=== PATIENT | female | born 1965 | race Caucasian/White ===

== ENCOUNTER → 2021-05-29 | Outpatient (CLI) | payer OTHER ==
[~2021-05-29] MED LIST: ASPIRIN EC81 MG PO; CEFUROXIME500 MG PO; DULERA 100 MCG8.8 GM INH; FLONASE 0.05% N16 GM; LIPITOR TAB 2020 MG PO; LIPITOR40 MG PO; LISINOPRIL5 MG PO; MEDROL DOSEPAK 24 MG PO; METOPROLOL TART25 MG PO; SINGULAIR10 MG PO; VENTOLIN HFA 66.7 GM INH; ZYRTEC10 M3 PO
== END ==
LOC: HEART 5 10:09
DX: J44.9 Chronic obstructive pulmonary disease, unspecified (principal); Z92.29 Personal history of other drug therapy
CPT/HCPCS: 71046; 94060; 94729